=== PATIENT | female | born 1980 | race Caucasian/White ===

== ENCOUNTER 2016-11-01 23:43 | Emergency (ER) | payer MEDICAID ==
[~2016-11-01] VITALS: Ht 160 cm; Wt 70.8 kg
[2016-11-01 23:43] VITALS: BP 160/90; PULSE 101; RESP 18; TEMP 99; O2SAT 98
--- NOTE | 2016-11-01 23:43 | NUR ---
Patient to [facility] for evaluation.
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
--- NOTE | 2016-11-01 23:48 | NUR ---
ER at bedside examining patient.
--- NOTE | 2016-11-02 00:51 | NUR ---
Patient given written and verbal discharge instructions and verbalizes understanding. ER MD discussed with patient the results and treatment provided. Patient in stable condition. ID arm band removed. No Rx given. Patient educated on pain management and to follow up with PMD. Pain Scale 0/10. Opportunity for questions provided and answered.
[2016-11-02 00:57] VITALS: BP 160/89; PULSE 98; RESP 18; TEMP 98; O2SAT 98
== END 2016-11-02 00:57 ==
LOC: SED 23:43
DX: Z02.89 Encounter for other administrative examinations (principal)
CPT/HCPCS: 99283

== ENCOUNTER 2020-09-30 06:30 | Day surgery (SDC) | payer MEDICAID, SELFPAY ==
[~2020-09-30] VITALS: Ht 157.5 cm; Wt 69.9 kg
[2020-09-30 07:10] LABS: HCG,QUAL RESULT NEGATIVE (NEGATIVE)
[2020-09-30] MEDS ORDERED: SIMETHICONE 40 MG/0.6 ML ML ONE (07:11)
[2020-09-30] MEDS ORDERED: MEPERIDINE 100 MG INJ. 100 MG/ML VIAL ONE (07:11)
[2020-09-30] MEDS ORDERED: MIDAZOLAM HCL 5 MG/5 ML VIAL ONE (07:11)
[2020-09-30] MEDS ORDERED: DIPHENHYDRAMINE INJ 50 MG/ML VIAL ONE (09:24)
[2020-09-30 09:45] VITALS: BP_SYST 138
== END 2020-09-30 10:40 | disposition home or self-care (01) ==
LOC: SDS 06:30
PROVIDERS: ATTEND Internal Medicine Gastroenterology
DX: R10.13 Epigastric pain (principal); K29.50 Unspecified chronic gastritis without bleeding; R11.2 Nausea with vomiting, unspecified; E11.9 Type 2 diabetes mellitus without complications; K21.9 Gastro-esophageal reflux disease without esophagitis; I10 Essential (primary) hypertension; Z79.899 Other long term (current) drug therapy; Z98.84 Bariatric surgery status
CPT/HCPCS: 36415; 43239; 82962; 84703; 87081; 87426; 88305; 88312; 88313; 96365; G0378; J1200; J2175; J2250